=== PATIENT | male | born 1975 | race Hispanic/Latino ===

== ENCOUNTER 2024-03-16 04:50 | Emergency (ER) | payer MEDICAID ==
--- OUTSIDE RECORDS SUMMARY | 2024-03-16 04:54 | XMS REPORT | Continuity of Care Document ---
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 return to work, or improve ability to work. Patient understands their responsibility of their involvement to achieve the above goals, better quality of life, better function, and possible pain control. Patient also understands the nature of chronic pain and disease process. Options: Conservative options have been reviewed and discussed in detail. These include additional physical therapy, medication, exercise conditioning, and weight loss. Interventional treatment options include epidural steroid injections, sacroiliac injections, medial branch block, or radiofrequency ablation. The patient has decided to proceed with interventional injection therapy. We discussed the role of surgery consult as well. That decision was deferred at this time. Risks: Risks of conservative treatment were discussed and include progression of the underlying condition, including permanent or increased neurological sequelae. Risks of interventional injection treatment were also reviewed in detail and include , hemorrhage, infection, nerve damage, paralysis, recurrence, worsening or non-resolution of symptoms, dural tear, dural puncture headache, meningitis. No guarantees were given. Certain components of the symptoms may not resolve as a result of interventional injection therapy. Patient is aware that spinal injection with varies types of corticosteroids is not FDA approved. The patient agrees to proceed with this treatment recommendation. Counseling Given: The diagnosis, prognosis, treatment options, risks; alternatives were discussed in detail using language understandable to this patient. Questions have been elicited and all questions have been answered to the patient s satisfaction in understandable terms. Realistic reassurance has been given to the patient regarding any fears or anxieties expressed today. Risks, benefits and options of recommended interventional procedures and proposed treatments were discussed. Preoperative instructions were reviewed including the use of anticoagulants. The patient was instructed to call if any change in medical status occurs, including infections which may necessitate schedule changes. Opiate Controlled Substance Therapy Requirements: Urine Drug Screen: Agree to submit to urine and/or blood screening tests to detect the use of non-prescribed medications, inappropriate pain medication, (including alcohol) or illicit drugs at any time. Psychology Clearance: Opiate controlled substance therapy for chronic pain represents a complex problem that may benefit from physical therapy, psychotherapy, and behavioral medicine strategies. Safety: Patient is aware that driving is prohibited while using opiate medications, muscle relaxants, antidepressants, or antiepileptics. Patients are prohibited to use any sedative hypnotics or sleeping aid, benzodiazepines or barbiturates while on medications from the pain clinic. Controlled substance medications should be in a locked, inaccessible to others, including children. Medication therapy of opiate controlled substance, muscle relaxant, antidepressant, antiepileptic, benzodiazepine, tranquilizer, or sedative may cause: 1. Psychological dependence (addiction) to controlled substances that will require participation in any treatment program prescribed at facilities, which may include; ?? detoxification and/or ?? psychological, and medical treatment 2. multiple side effects include: - respiratory depression or failure that may lead to sudden . - intractable constipation that may cause bowel impaction or obstruction, which may require surgery. - urinary retention that may lead to renal problems - decrease of hormone levels with possible impotence, decreased libido, or sexual dysfunction. - Methadone or various antidepressants may cause heart arrhythmias that may lead to . - withdrawal symptoms such as, abdominal cramps, sweats, chills, generalized aching, and sudden . - sedation caused by medications: opiates (oral, patch, or infusion pump) muscle relaxants, anti-epileptic, benzodiazapines, antidepressants, sedatives, and/or tranquilizers, the drug manager target, recommends not operating ANY machinery or ANY form of motorized equipment (this includes a motor vehicle). - sedation from medications may cause increase risk of falls which requires 24 hrs supervision when starting a new medication. - any other side effects that may require immediate ER medical attention. - Patient is aware the possible of developing seriotonin syndrome while being on various antidepressants or tramadol type medications which may lead to sudden . [facility]
[2024-03-16] MEDS ORDERED: NA CHLORIDE 0.9% 1,000 ML ONE (05:40)
[2024-03-16 05:47] LABS: Absolute Eosinophils 0.1 K/uL (0-0.5); Absolute Lymphocytes (CBC) 1.2 K/uL (0.7-4.9); Absolute Monocytes 0.3 K/uL (0.1-1.3); Absolute Neutrophil 5.7 K/uL (1.8-8.0); Basophils % 0.7 % (0-1.3); Eosinophils % 0.9 % (0-4.4); Lymphocytes % 16.1 % (15.3-44.8); MCH 29.8 pg (27.0-35.0); MCHC 33.9 g/dL (32.0-36.0); MCV 87.9 fL (80-100); MPV 8.9 fL (7.6-11.3); Monocytes % 4.7 % (3.3-12.3); Neutrophils % 77.6 % (41.7-73.7); Nucleated Red Blood Cells % 0.1 % (0-0); Platelets 249 thou/uL (152-406); RBC Red Blood Cell Count 6.04 M/uL (4.33-5.43); Red Cell Distribution Width 13.8 % (12.1-15.2)
[2024-03-16 06:01] LABS: ALT/SGPT 33 U/L (16-61); AST/SGOT 18 U/L (15-37); Albumin 3.5 g/dL (3.4-5.0); Alkaline Phosphatase 57 U/L (45-117); Anion Gap 7.6 mEq/L (5.0-15.0); BUN Blood Urea Nitrogen 10 mg/dL (7-18); Bicarbonate 28 mEq/L (21-32); Bilirubin Total 0.4 mg/dL (0.2-1.0); Globulin 3.6 g/dL (2.3-3.5); Glomerular Filtration Rate 88 ml/min (=/>90); Glucose Level 117 mg/dL (74-106); Lipase 35 U/L (13-75); Magnesium 1.9 mg/dL (1.6-2.4); NT PRO-BNP 11 pg/mL (<125); Potassium 3.6 mEq/L (3.5-5.1); Protein, Total 7.1 g/dL (6.4-8.2); Sodium Level 139 mEq/L (136-145); Troponin High Sensitivity 26.7 pg/mL (<58.9)
[2024-03-16 06:06] LABS: Bilirubin Direct < 0.2 mg/dL (0-0.2); Bilirubin Indirect, Calculated 0.2 mg/dL (0.2-0.8); PT Prothrombin Time 12.1 SECONDS (9.4-12.5); Protime INR 1.08
[2024-03-16] MEDS ORDERED: MORPHINE 4 MG/ML SYR ONE (06:08)
[2024-03-16] MEDS ORDERED: ASPIRIN 81 MG CHEWABLE TABLET ONE (06:08)
[2024-03-16] MEDS ORDERED: ONDANSETRON 4 MG/2 ML VIAL ONE (06:08)
[2024-03-16 06:22] LABS: Specific Gravity 1.025 (1.005-1.030); Sqamous Epithelial None Seen /HPF (None Seen); Urine Bacteria None Seen /HPF (<20); Urine Bilirubin NEGATIVE (Negative); Urine Blood 1+ (Negative); Urine Clarity Clear (Clear); Urine Color Yellow (Yellow); Urine Culture Reflex Order NOT NEEDED; Urine Glucose NEGATIVE (Negative); Urine Ketones TRACE (Negative); Urine Microscopic Reflex YN ORDER UMIC; Urine Mucus Slight /HPF (None Seen); Urine Nitrite NEGATIVE (Negative); Urine Protein TRACE (Negative); Urine Urobilinogen Normal (Normal); Urine WBC <5 /HPF (<5); Urine pH 6.5 (5.0-7.0)
[2024-03-16] MEDS ORDERED: KETOROLAC 30 MG/ML INJ ONE (06:32)
--- NOTE | 2024-03-16 06:54 | RAD REPORT ---
EXAMINATION: CT CERVICAL SPINE WITHOUT CONTRAST CLINICAL INDICATION: Male, 48 years old. PAIN TECHNIQUE: Axial CT images through the cervical spine were obtained without intravenous contrast. Sag ittal and coronal reformatted images were created from the data set. One or more of the following dose reduction techniques were used: Automated exposure control, adjustment of the mA and/or kV accor ding to patient size, and/or iterative reconstruction. Unless otherwise specified, incidental findings do not require dedicated imaging follow-up. [id number]. COMPARISON: No prior exam. FINDINGS: ALIGNMENT: Mild reversal of the normal cervical lordosis. 2 mm anterolisthesis of C7 on T1. BONE: Vertebral body heights are maintained. No aggressive osseous lesions. DISCS: Moderate disc height loss at C3-4, C4-5, and mild disc height loss at C5-6 and C6-7. LEVELS: No high-grade central spinal stenosis. Uncovertebral joint hypertrophy and posterior disc ost eophyte complexes contribute to moderate bilateral neural foraminal narrowing at C4-5, severe right neural foraminal narrowing at C5-6, and moderate left neural foraminal narrowing at C5-6. SOFT TISSUE: No significant abnormalities in the soft tissue of the neck. The visualized lung apices are clear. IMPRESSION: No acute cervical spine abnormalities. Multilevel cervical spondylosis with evidence of bilateral sonia ral foraminal narrowing. No high-grade central spinal stenosis appreciated.
--- NOTE | 2024-03-16 06:57 | RAD REPORT ---
EXAM: Angio Aorta For Dissection CLINICAL INDICATION: Male, 48 years Chest pain;Dyspnea TECHNIQUE: CTA of the aorta was obtained including the chest, abdomen and pelvis, with IV contrast, a s per department protocol. Axial, sagittal and coronal reconstructions were obtained. Post-processing was applied at the acquisition scanner with concurrent physician supervision which in cludes 3D reconstructions, MIPs, volume rendered images and/or shaded surface rendering. One or more of the following dose reduction techniques were used: Automated exposure control, adjustment of the mA and/or kV according to the patient size, and/or iterative reconstruction. Unless otherwise specified, incidental findings do not require dedicated imaging follow-up. [id number]. COMPARISON: No prior exam. FINDINGS: Chest: LOWER NECK/CHEST WALL: Visualized thyroid gland and soft tissues are normal. LUNGS AND AIRWAYS: Airways are clear. No evidence of airspace or interstitial process. No nodules. PLEURA: No pleural effusion. No pneumothorax. Hemidiaphragms are normally positioned. MEDIASTINUM AND LYMPH NODES: No mediastinal mass or fluid collection. Normal size mediastinal, hilar, and axillary lymph nodes. THORACIC AORTA: Normal caliber and configuration. PULMONARY ARTERIES: No pulmonary embolism identified. Normal caliber of the pulmonary arteries. HEART: Unremarkable. Abdomen/Pelvis LIVER: Small hyperattenuating focus in the left hepatic lobe is likely a flash fill hemangioma. It me asures 10 mm. GALLBLADDER/BILE DUCTS: No biliary ductal dilatation. PANCREAS: No mass, ductal dilation, or jana-pancreatic fluid. SPLEEN: Normal size. No focal lesion. ADRENALS: Normal; no mass. KIDNEYS AND URETERS: Bilateral renal lesions which are either benign in appearance or too small to ac curately characterize but statistically benign. No hydronephrosis. No renal or ureteral calculi. GASTROINTESTINAL TRACT: Stomach is non-dilated. Small bowel has normal course and caliber. No colonic wall thickening or pericolonic inflammatory changes. Normal appendix. PERITONEUM: No free fluid. LYMPH NODES: No lymphadenopathy. ABDOMINAL AORTA AND OTHER VESSELS: Normal caliber aorta and IVC. URINARY BLADDER: Normal contour. REPRODUCTIVE ORGANS: No pathologic process. MUSCULOSKELETAL: No acute or suspicious osseous abnormality. ADDITIONAL FINDINGS: None IMPRESSION: No aortic aneurysm or dissection. No pulmonary embolus. No acute or significant abnormalities in the chest, abdomen, or pelvis.
--- NOTE | 2024-03-16 07:00 | RAD REPORT ---
EXAM: Chest Single View HISTORY: DYSPNEA COMPARISON: 05/12/2016 FINDINGS: LUNGS/PLEURA: The lungs are clear. No pleural effusions or pneumothorax. No pulmonary edema. Mild sharon vated right hemidiaphragm. MEDIASTINUM: The mediastinal silhouette is within normal limits. CARDIAC: The cardiac silhouette is within normal limits. UPPER ABDOMEN: No significant abnormality. BONES: No acute fracture. LINES/TUBES/OTHER: N/A IMPRESSION: No evidence of acute cardiopulmonary disease.
[2024-03-16] MEDS ORDERED: dexAMETHasone 10 MG/ML VIAL ONE (08:16)
--- NOTE | 2024-03-16 08:42 | EDPHYS ---
Physician Documentation [facility] Name: Kayden Prieto Age: 48 yrs Sex: Male : 1975 Arrival Date: 03/16/2024 Time: 04:50 Bed 14 Private MD: ED Physician Samuel Mosqueda HPI: 03/16 06:03 This 48 yrs old Male presents to ER via Ambulatory with complaints of joyce Breathing Difficulty - due to back/neck pain. 06:03 The patient has shortness of breath at rest, with light activity. Onset: The joyce symptoms/episode began/occurred this morning, today. Duration: The symptoms are continuous. The patient's shortness of breath is aggravated by coughing, deep breaths. Associated signs and symptoms: Pertinent positives: chest pain. Severity of symptoms: At their worst the symptoms were moderate severe in the emergency department the symptoms have improved moderately. The patient has not experienced similar symptoms in the past. Historical: - Allergies: 05:08 No Known Allergies; ha1 - PMHx: 05:08 Glaucoma; vision impair (Glaucoma); ha1 - Immunization history:: Adult Immunizations up to date. - Infectious Disease History:: Denies. - Social history:: Smoking status: Patient denies any tobacco usage or history of. ROS: 06:06 Constitutional: Negative for fever, chills, and weight loss, Eyes: Negative for injury, joyce pain, redness, and discharge, ENT: Negative for injury, pain, and discharge, Neck: Negative for injury, pain, and swelling, Abdomen/GI: Negative for abdominal pain, nausea, vomiting, diarrhea, and constipation, Back: Negative for injury and pain, : Negative for injury, bleeding, discharge, and swelling, MS/Extremity: Negative for injury and deformity, Skin: Negative for injury, rash, and discoloration, Neuro: Negative for headache, weakness, numbness, tingling, and seizure, Psych: Negative for depression, anxiety, suicide ideation, homicidal ideation, and hallucinations, Allergy/Immunology: Negative for hives, rash, and allergies, Endocrine: Negative for neck swelling, polydipsia, polyuria, polyphagia, and marked weight changes, Hematologic/Lymphatic: Negative for swollen nodes, abnormal bleeding, and unusual bruising, 06:06 Cardiovascular: Positive for chest pain, with movement, 06:06 Respiratory: Positive for pleurisy, 07:20 Skin: Negative for rash, swelling, joyce 07:20 All other systems are negative, Exam: 06:06 Constitutional: This is a well developed, well nourished patient who is awake, alert, joyce and in no acute distress. Head/Face: Normocephalic, atraumatic. Eyes: Pupils equal round and reactive to light, extra-ocular motions intact. Lids and lashes normal. Conjunctiva and sclera are non-icteric and not injected. Cornea within normal limits. Periorbital areas with no swelling, redness, or edema. ENT: Nares patent. No nasal discharge, no septal abnormalities noted. Tympanic membranes are normal and external auditory canals are clear. Oropharynx with no redness, swelling, or masses, exudates, or evidence of obstruction, uvula midline. Mucous membranes moist. Neck: Trachea midline, no thyromegaly or masses palpated, and no cervical lymphadenopathy. Supple, full range of motion without nuchal rigidity, or vertebral point tenderness. No Meningismus. Chest/axilla: Normal chest wall appearance and motion. Nontender with no deformity. No lesions are appreciated. Cardiovascular: Regular rate and rhythm with a normal S1 and S2. No gallops, murmurs, or rubs. Normal PMI, no JVD. No pulse deficits. Respiratory: Lungs have equal breath sounds bilaterally, clear to auscultation and percussion. No rales, rhonchi or wheezes noted. No increased work of breathing, no retractions or nasal flaring. Abdomen/GI: Soft, non-tender, with normal bowel sounds. No distension or tympany. No guarding or rebound. No evidence of tenderness throughout. Back: No spinal tenderness. No costovertebral tenderness. Full range of motion. Male : Normal genitalia with no discharge or lesions. Skin: Warm, dry with normal turgor. Normal color with no rashes, no lesions, and no evidence of cellulitis. MS/ Extremity: Pulses equal, no cyanosis. Neurovascular intact. Full, normal range of motion., bilateral aka Neuro: Awake and alert, GCS 15, oriented to person, place, time, and situation. Cranial nerves II-XII grossly intact. Motor strength 5/5 in all extremities. Sensory grossly intact. Cerebellar exam normal. Normal gait. Psych: Awake, alert, with orientation to person, place and time. Behavior, mood, and affect are within normal limits. 06:06 ECG was reviewed by the Attending Physician. 07:42 ECG was reviewed by the Attending Physician. [facility] Vital Signs: 05:04 BP 157 / 97; Pulse 83; Resp 18 S; Temp 98(T); Pulse Ox 95% on R/A; Weight 75.75 kg; ha1 Height 5 ft. 6 in. ; 06:59 BP 142 / 96; Pulse 73; Resp 16; Pulse Ox 94% ; Pain 3/10; br2 08:20 BP 137 / 94; Pulse 70; Resp 17; Pulse Ox 97% on R/A; rs5 09:00 BP 140 / 88; Pulse 77; Resp 16; Pulse Ox 96% on R/A; rs5 05:04 Body Mass Index 26.95 (75.75 kg, 167.64 cm) ha1 06:59 Pain Scale: Adult br2 MDM: 05:10 Medical Screening Exam initiated [facility] 06:07 Differential diagnosis: acute myocardial infarction, acute pericarditis, anxiety, joyce congestive heart failure Cholelithiasis costochondritis, pancreatitis, peptic ulcer disease, pneumonia, pulmonary embolus, stable angina, thoracic aortic disection, unstable angina, Myocardial Infarction Pneumothorax pulmonary edema, Pulmonary Embolism reactive airway disease, Unstable Angina. Antibiotic administration: Not indicated. HEART Score: ECG: Normal (0), Age: > 45 and < 65 years (1), Risk Factors: No Risk Factors Known (0), Troponin: < or = 1 x Normal Limit (0). The patient was given aspirin in the Emergency Department. SAWYER Risk Score: TOTAL SCORE = 0. Immunization status:. Data reviewed: vital signs, nurses notes, lab test result(s), EKG, radiologic studies, CT scan, plain films. Consideration of Admission/Observation Escalation of care including admission/observation considered. I considered the following discharge prescriptions or medication management in the emergency department Medications were administered in the Emergency Department. See MAY. 03/16 05:25 Order name: Basic Metabolic Panel; Complete Time: 06:42 [facility] 03/16 05:25 Order name: CBC with Diff; Complete Time: 06:42 [facility] 03/16 05:25 Order name: LFT's; Complete Time: 06:42 [facility] 03/16 05:25 Order name: Magnesium; Complete Time: 06:42 [facility] 03/16 05:25 Order name: NT PRO-BNP; Complete Time: 06:42 [facility] 03/16 05:25 Order name: PT-INR; Complete Time: 06:42 [facility] 03/16 05:25 Order name: Troponin HS; Complete Time: 06:42 [facility] 03/16 05:25 Order name: Lipase; Complete Time: 06:42 [facility] 03/16 05:25 Order name: Urinalysis w/ reflexes; Complete Time: 06:42 [facility] 03/16 07:20 Order name: Troponin High Sensitivity: 800 AM; Complete Time: 08:41 [facility] 03/16 05:25 Order name: XRAY Chest (1 view); Complete Time: 07:14 [facility] 03/16 05:25 Order name: CT C Spine; Complete Time: 07:14 [facility] 03/16 06:07 Order name: Angio Aorta For Dissection; Complete Time: 07:14 [facility] 03/16 07:29 Order name: EKG; Complete Time: 07:30 [facility] 03/16 05:25 Order name: Cardiac monitoring; Complete Time: 05:37 [facility] 03/16 05:25 Order name: EKG - Nurse/Tech; Complete Time: 05:37 [facility] 03/16 05:25 Order name: IV Saline Lock; Complete Time: 05:37 [facility] 03/16 05:25 Order name: Labs collected and sent; Complete Time: 05:37 [facility] 03/16 05:25 Order name: O2 Per Protocol; Complete Time: 05:37 [facility] 03/16 05:25 Order name: O2 Sat Monitoring; Complete Time: 06:02 [facility] 03/16 07:29 Order name: EKG - Nurse/Tech; Complete Time: 07:45 [facility] EC:06 Rate is 74 beats/min. Rhythm is regular. QRS [place] is Normal. UT interval is normal. QRS joyce interval is normal. QT interval is normal. No Q waves. T waves are Normal. No ST changes noted. Clinical impression: Normal ECG and No evidence of ischemia. Interpreted by me. Reviewed by me. 07:42 Rate is 75 beats/min. Rhythm is regular. QRS [place] is Normal. [place] interval is normal. QRS joyce interval is normal. QT interval is normal. No Q waves. T waves are Normal. No ST changes noted. Clinical impression: Normal ECG and No evidence of ischemia. Interpreted by me. Reviewed by me. Administered Medications: 05:30 Drug: NS 0.9% IV 1000 ml IV at 1000 ml once; to be given as a bolus over 60 minutes br2 Route: IV; Rate: 1000 ml; Site: right antecubital; 07:00 Follow up: IV Status: Completed infusion; IV Intake: 1000ml rs5 06:02 Drug: Ondansetron IVP 4 mg IVP once; over 2 minutes Route: IVP; Site: right antecubital;ha1 07:00 Follow up: Response: No adverse reaction rs5 06:03 Drug: Aspirin PO Chewable Tablet 81 mg PO once Route: PO; ha1 07:00 Follow up: Response: No adverse reaction rs5 06:04 Drug: morphine IVP or IV 4 mg IVP once over 4 mins Route: IVP; Infused Over: 4 mins; ha1 Site: right antecubital; 07:00 Follow up: Response: No adverse reaction; Pain is decreased rs5 06:38 Drug: Ketorolac IVP 15 mg IVP once Route: IVP; Site: right antecubital; br2 07:00 Follow up: Response: No adverse reaction; Pain is decreased rs5 08:19 Drug: Decadron - Dexamethasone IVP 10 mg IVP once Route: IVP; Site: right antecubital; rs5 08:40 Follow up: Response: No adverse reaction rs5 Disposition Summary: 03/16/24 08:42 Discharge Ordered Notes: Location: Home cp Problem: new cp Symptoms: have improved cp Condition: Stable cp Diagnosis - Pleurisy cp - Unspecified symptoms and signs involving the musculoskeletal system cp - Strain of muscle and tendon of back wall of thorax cp Followup: joyce - With: Private Physician - When: 2 - 3 days - Reason: Recheck today's complaints, Re-evaluation by your physician Followup: joyce - With: Stuart Goodwin DO - When: 2 - 3 days - Reason: Recheck today's complaints, Re-evaluation by your physician Discharge Instructions: - Discharge Summary Sheet joyce - Musculoskeletal Pain joyce - Pleurisy joyce - Thoracic Strain joyce - Pleurisy, [id number] joyce Forms: - Medication Reconciliation Form cp - Antibiotic Education cp - Prescription Opioid Use cp - Patient Portal Instructions cp - Leadership Thank You Letter cp - Family Work Release rs5 Prescriptions: - acetaminophen-codeine 300-30 mg Oral tablet - take 2 tablet ORAL route every 6 hours; 24 tablet; Refills: 0, Product joyce Selection Permitted - dexamethasone 4 mg Oral tablet - take 1 tablet ORAL route daily; 4 tablet; Refills: 0, Product Selection [facility] Permitted - Ibuprofen 600 mg Oral Tablet - take 1 tablet ORAL route every 6 hours As needed take with food; 30 tablet; joyce Refills: 0, Product Selection Permitted - methocarbamol 750 mg Oral tablet - take 1 tablet ORAL route every 4-6 hours; 30 tablet; Refills: 0, Product joyce Selection Permitted Signatures: Dispatcher [employer] EDMS Samuel Mosqueda MD MD cha Page, Corey, Maryse Ferrera cp RN RN ha1 Doug Gil RN RN rs5 Shelby Stein RN RN br2 Corrections: (The following items were deleted from the chart) 05:26 05:26 BASIC METABOLIC PANEL+C.LAB.BRZ ordered. EDMS EDMS 05:26 05:26 CBC+H.LAB.BRZ ordered. EDMS EDMS 05:26 05:26 HEPATIC FUNCTION+C.LAB.BRZ ordered. EDMS EDMS 05:26 05:26 MAGNESIUM+C.LAB.BRZ ordered. EDMS EDMS 05:26 05:26 PROBNP+C.LAB.BRZ ordered. EDMS EDMS 05:26 05:26 PROTIME (+INR)+COAG.LAB.BRZ ordered. EDMS EDMS 05:26 05:26 Troponin High Sensitivity+C.LAB.BRZ ordered. EDMS EDMS 05:26 05:26 LIPASE+C.LAB.BRZ ordered. EDMS EDMS 05:26 05:26 Urinalysis+U.LAB.BRZ ordered. EDMS EDMS 05:26 05:26 Chest Single View+RAD.RAD.BRZ ordered. EDMS EDMS 05:26 05:26 C Spine Wo Con+CT.RAD.BRZ ordered. EDMS EDMS 05:26 05:26 Chest For PE Angio+CT.RAD.BRZ ordered. EDMS EDMS
--- NOTE | 2024-03-16 08:42 | ER ---
Nurse's Notes [facility] Name: Kayden Prieto Age: 48 yrs Sex: Male : 1975 Arrival Date: 03/16/2024 Time: 04:50 Bed 14 Private MD: Diagnosis: Pleurisy;Unspecified symptoms and signs involving the musculoskeletal system;Strain of muscle and tendon of back wall of thorax Presentation: 03/16 05:04 Chief complaint: Patient states: pain on the right shoulder when breathing. Coronavirus ha1 screen: At this time, unable to obtain information related to travel outside the [place] Ebola Screen: No symptoms or risks identified at this time. Initial Sepsis Screen: Does the patient meet any 2 criteria? No. Patient's initial sepsis screen is negative. Does the patient have a suspected source of infection? No. Patient's initial sepsis screen is negative. Risk Assessment: Do you want to hurt yourself or someone else? Patient reports no desire to harm self or others. Onset of symptoms was March 16, 2024. 05:04 Method Of Arrival: Ambulatory ha1 05:04 Acuity: KEITH 3 ha1 Triage Assessment: 07:00 General: Appears in no apparent distress. uncomfortable, Behavior is calm, cooperative. rs5 Respiratory: Respiratory: Onset: The symptoms/episode began/occurred this morning, the patient has mild shortness of breath. Historical: - Allergies: 05:08 No Known Allergies; ha1 - PMHx: 05:08 Glaucoma; vision impair (Glaucoma); ha1 - Immunization history:: Adult Immunizations up to date. - Infectious Disease History:: Denies. - Social history:: Smoking status: Patient denies any tobacco usage or history of. Screenin:08 Abuse screen: Denies threats or abuse. Denies injuries from another. Nutritional ha1 screening: No deficits noted. Tuberculosis screening: No symptoms or risk factors identified. 05:11 [facility] ED Fall Risk Assessment (Adult) History of falling in the last 3 months, br2 including since admission No falls in past 3 months (0 pts) Confusion or Disorientation No (0 pts) Intoxicated or Sedated No (0 pts) Impaired Gait No (0 pts) Mobility Assist Device Used No (0 pt) Altered Elimination No (0 pt) Score/Fall Risk Level 0 - 2 = Low Risk Oriented to surroundings. Assessment: 05:09 Respiratory: Airway is patent. ha1 05:09 Reassessment: Patient and/or family updated on plan of care and expected duration. Pain br2 level reassessed. Patient is alert, oriented x 3, equal unlabored respirations, skin warm/dry/pink. General: Appears in no apparent distress. uncomfortable, Behavior is calm, cooperative. Pain: Complains of pain in right scapular area Pain does not radiate. Pain currently is 6 out of 10 on a pain scale. Neuro: High Agitation-Sedation Scale (RASS): 0 - Alert and Calm Level of Consciousness is awake, alert, obeys commands, Oriented to person, place, time, situation. Cardiovascular: Capillary refill < 3 seconds. Cardiovascular: Rhythm is regular. Respiratory: Reports shortness of breath on exertion movement Respiratory effort is even, unlabored, Breath sounds are clear bilaterally. GI: No signs and/or symptoms were reported involving the gastrointestinal system. : No signs and/or symptoms were reported regarding the genitourinary system. EENT: No signs and/or symptoms were reported regarding the EENT system. Derm: No signs and/or symptoms reported regarding the dermatologic system. 06:10 Reassessment: Patient and/or family updated on plan of care and expected duration. Pain rs5 level reassessed. Patient is alert, oriented x 3, equal unlabored respirations, skin warm/dry/pink. 07:00 General: Appears in no apparent distress. comfortable, Behavior is calm, cooperative. rs5 Pain: Complains of pain in right scapular area Pain currently is 2 out of 10 on a pain scale. Quality of pain is described as aching, Is continuous. Neuro: Level of Consciousness is awake, alert, obeys commands, Oriented to person, place, time, situation. Cardiovascular: Patient's skin is warm and dry. Respiratory: Airway is patent Respiratory effort is even, unlabored. GI: Abdomen is round non-distended, Abd is soft and non tender X 4 quads. : No signs and/or symptoms were reported regarding the genitourinary system. EENT: No signs and/or symptoms were reported regarding the EENT system. Derm: Skin is intact, Skin is dry, Skin is normal, Skin temperature is warm. Musculoskeletal: Range of motion: limited in right scapular area. 08:15 Reassessment: Patient and/or family updated on plan of care and expected duration. Pain rs5 level reassessed. Patient is alert, oriented x 3, equal unlabored respirations, skin warm/dry/pink. 09:00 Reassessment: Patient and/or family updated on plan of care and expected duration. Pain rs5 level reassessed. Patient is alert, oriented x 3, equal unlabored respirations, skin warm/dry/pink. Vital Signs: 05:04 BP 157 / 97; Pulse 83; Resp 18 S; Temp 98(T); Pulse Ox 95% on R/A; Weight 75.75 kg; ha1 Height 5 ft. 6 in. ; 06:59 BP 142 / 96; Pulse 73; Resp 16; Pulse Ox 94% ; Pain 3/10; br2 08:20 BP 137 / 94; Pulse 70; Resp 17; Pulse Ox 97% on R/A; rs5 09:00 BP 140 / 88; Pulse 77; Resp 16; Pulse Ox 96% on R/A; rs5 05:04 Body Mass Index 26.95 (75.75 kg, 167.64 cm) ha1 06:59 Pain Scale: Adult br2 ED Course: 04:56 Patient arrived in ED. ra3 04:58 Shelby Stein, RN is Primary Nurse. br2 05:08 Triage completed. ha1 05:10 Samuel Mosqueda MD is Attending Physician. [facility] 05:11 Patient has correct armband on for positive identification. Bed in low position. Call br2 light in reach. Side rails up X 1. Provided Education on: plan of care. 05:20 Inserted saline lock: 20 gauge in right antecubital area, using aseptic technique. br2 Blood collected. Flushed with 10 mL NS. 05:37 Lipase Sent. br2 05:37 Basic Metabolic Panel Sent. br2 05:37 CBC with Diff Sent. br2 05:38 LFT's Sent. br2 05:38 Magnesium Sent. br2 05:38 NT PRO-BNP Sent. br2 05:38 PT-INR Sent. br2 05:38 Troponin HS Sent. br2 05:45 XRAY Chest (1 view) In Process Unspecified. EDMS 05:49 EKG done, by ED staff, reviewed by Samuel Mosqueda MD. oe 06:48 CT C Spine In Process Unspecified. EDMS 06:48 Angio Aorta For Dissection In Process Unspecified. EDMS 07:46 EKG done, by ED staff, reviewed by Samuel Mosqueda MD. zm 07:55 Troponin High Sensitivity: 800 AM Sent. zm 07:56 Repeat lab(s) drawn. by me, sent to lab. zm 08:00 No provider procedures requiring assistance completed. rs5 08:42 Stuart Goodwin DO is Referral Physician. cp 09:00 IV discontinued, intact, bleeding controlled, No redness/swelling at site. Pressure rs5 dressing applied. Administered Medications: 05:30 Drug: NS 0.9% IV 1000 ml IV at 1000 ml once; to be given as a bolus over 60 minutes br2 Route: IV; Rate: 1000 ml; Site: right antecubital; 07:00 Follow up: IV Status: Completed infusion; IV Intake: 1000ml rs5 06:02 Drug: Ondansetron IVP 4 mg IVP once; over 2 minutes Route: IVP; Site: right antecubital;ha1 07:00 Follow up: Response: No adverse reaction rs5 06:03 Drug: Aspirin PO Chewable Tablet 81 mg PO once Route: PO; ha1 07:00 Follow up: Response: No adverse reaction rs5 06:04 Drug: morphine IVP or IV 4 mg IVP once over 4 mins Route: IVP; Infused Over: 4 mins; ha1 Site: right antecubital; 07:00 Follow up: Response: No adverse reaction; Pain is decreased rs5 06:38 Drug: Ketorolac IVP 15 mg IVP once Route: IVP; Site: right antecubital; br2 07:00 Follow up: Response: No adverse reaction; Pain is decreased rs5 08:19 Drug: Decadron - Dexamethasone IVP 10 mg IVP once Route: IVP; Site: right antecubital; rs5 08:40 Follow up: Response: No adverse reaction rs5 Medication: 09:00 VIS not applicable for this client. rs5 Intake: 07:00 IV: 1000ml; Total: 1000ml. rs5 Outcome: 08:42 Discharge ordered by . cp 09:00 Discharged to home ambulatory, rs5 09:00 Condition: stable rs5 09:00 Discharge instructions given to patient, family, Instructed on discharge instructions, follow up and referral plans. medication usage, Demonstrated understanding of instructions, follow-up care, medications, Prescriptions given X 4, 09:02 Patient left the ED. rs5 Signatures: Dispatcher [employer] EDMS Samuel Mosqueda MD MD cha Page, Corey, PA PA cp Espinosa, Orlando oe Martinez, Zaina zm Ayala, Heidy, RN RN ha1 Doug Gil RN RN rs5 Ruby Lazcano ra3 Shelby Stein RN RN br2 Corrections: (The following items were deleted from the chart) 09:51 09:15 BP 140 / 88; Pulse 77bpm; Resp 16bpm; Pulse Ox 96% RA; rs5 rs5
[2024-03-16 09:42] VITALS: TEMP 98
[2024-03-16 09:48] VITALS: BP 142/96; O2SAT 94
--- NOTE | 2024-03-17 12:01 | EKG ---
Test Date: 2024-03-16 Test Time: 07:37:24 Act Tutor: Ganesh DIAZ MEASUREMENT RESULTS: Intervals: Rate: 75 SD: 150 QRSD: 108 QT: 386 QTc: 431 [place]: P: 34 SD: 150 QRS: -9 T: 6 INTERPRETIVE STATEMENTS: Normal sinus rhythm Normal ECG Compared to ECG 05/12/2016 19:33:18 No significant changes Electronically Signed On 03-17-24 12:00:18 BULL GANG SUPERVISOR by Sebastian Haines
--- NOTE | 2024-03-17 12:01 | EKG ---
Test Date: 2024-03-16 Test Time: 05:36:11 Testboard Operator: ALIZE MEASUREMENT RESULTS: Intervals: Rate: 74 ND: 146 QRSD: 102 QT: 362 QTc: 401 [place]: P: 29 ND: 146 QRS: -19 T: 4 INTERPRETIVE STATEMENTS: Normal sinus rhythm Normal ECG Compared to ECG 05/12/2016 19:33:18 No significant changes Electronically Signed On 03-17-24 12:00:25 EMBEDDED SOFTWARE ARCHITECT by Sebastian Haines
== END 2024-03-16 09:02 | disposition home or self-care (01) ==
LOC: ER 04:50
DX: R09.1 Pleurisy (principal); S29.012A Strain of muscle and tendon of back wall of thorax, initial encounter; R29.91 Unspecified symptoms and signs involving the musculoskeletal system
CPT/HCPCS: 96361; 93005 ×2; 85025; 81001; 80048; 36415; 83735; 85610; 80076; 84484 ×2; 83690; 83880; 72125; 71275; 74175; 71045; 96375; 96374; 99285; Q9967; J1100; J2405; J7030